=== PATIENT | male | born 1960 | race Caucasian/White ===

== ENCOUNTER 2020-11-20 13:06 | Emergency (ER) | payer MEDICAID, OTHER ==
--- NOTE | 2020-11-20 13:56 | EDM.PDOC ---
ED HPI GENERAL MEDICAL PROBLEM - General Chief Complaint: General Stated Complaint: POSSIBLE COVID Time Seen by Provider: 11/20/20 13:40 Source of Information: Reports: Patient, RN. Denies: Old Records History Limitations: Reports: Other (no old records) - History of Present Illness INITIAL COMMENTS - FREE TEXT/NARRATIVE: 60 yo male who has a cabin locally but who is otherwise from [facility] presents with 3 days of weakness, mild diarrhea, and some vague stomach pain. He has a dry cough without SOB. He got sick shortly after arriving and [place] Is here by himself. Still has his GB. Onset: Gradual Onset Date: 11/17/20 Duration: Day(s): (3+), Constant Location: Reports: Chest (cough), Abdomen (diffuse, mild pain) Quality: Reports: Dull Severity: Mild Improves with: Reports: None Worsens with: Reports: None Context: Reports: Other (See HPI) Associated Symptoms: Reports: Cough (dry), Other (diarrhea, mild). Denies: Chest Pain, Fever/Chills, Nausea/Vomiting, Shortness of Breath Treatments STONECUTTER HAND: Reports: Other (see below) (none) Bilateral Knee Pain Score (Numeric/FACES): 7 - Related Data Allergies Allergy/AdvReac Type Severity Reaction Status Date / Time No Known Allergies Allergy Verified 11/20/20 13:24 Home Meds: Home Meds Carbidopa/Levodopa [Sinemet 25-250 mg Tablet] 1 each PO QID 11/20/20 [History] Cetirizine [ZyrTEC] 10 mg PO DAILY 11/20/20 [History] Tolterodine Tartrate 1 mg PO BID PRN 11/20/20 [History] amLODIPine Besylate [Amlodipine Besylate] 5 mg PO DAILY 11/20/20 [History] lisinopriL [Lisinopril] 20 mg PO DAILY 11/20/20 [History] Past Medical History HEENT History: Reports: None Cardiovascular History: Reports: Hypertension Respiratory History: Reports: None Gastrointestinal History: Reports: None Genitourinary History: Reports: None Musculoskeletal History: Reports: Fracture Other Musculoskeletal History: right ankle Neurological History: Reports: Parkinson's Psychiatric History: Reports: None Endocrine/Metabolic History: Reports: None Hematologic History: Reports: None Immunologic History: Reports: None Oncologic (Cancer) History: Reports: None Dermatologic History: Reports: Urticaria Other Dermatologic History: rash on back - Infectious Disease History Infectious Disease History: Reports: Chicken Pox - Past Surgical History Other HEENT Surgeries/Procedures: eye lid lift GI Surgical History: Reports: None Musculoskeletal Surgical History: Reports: Knee Replacement Other Musculoskeletal Surgeries/Procedures:: right Social & Family History - Caffeine Use Caffeine Use: Reports: None - Recreational Drug Use Recreational Drug Use: No ED ROS GENERAL - Review of Systems Review Of Systems: See Below Constitutional: Reports: Malaise, Weakness (generalized). Denies: Fever, Chills, Diaphoresis HEENT: Reports: No Symptoms Respiratory: Reports: No Symptoms Cardiovascular: Reports: No Symptoms Endocrine: Reports: No Symptoms GI/Abdominal: Reports: Abdominal Pain (mild, diffuse), Diarrhea (mild, no blood). Denies: Black Stool, Bloody Stool, Constipation, Distension, Hematemesis, Hematochezia, Melena, Nausea, Vomiting : Reports: No Symptoms Musculoskeletal: Reports: No Symptoms Skin: Reports: No Symptoms Neurological: Reports: No Symptoms Psychiatric: Reports: No Symptoms ED EXAM, GENERAL - Physical Exam Exam: See Below Exam Limited By: No Limitations General Appearance: Alert, WD/WN, No Apparent Distress Eye Exam: Bilateral Eye: Normal Inspection Ears: Normal External Exam, Normal Canal, Hearing Grossly Normal, Normal TMs Ear Exam: Bilateral Ear: Auricle Normal, Canal Normal, TM normal Nose: Normal Inspection, No Blood Throat/Mouth: Normal Inspection, Normal Lips, Normal Oropharynx, Normal Voice, No Airway Compromise Head: Atraumatic, Normocephalic Neck: Normal Inspection Respiratory/Chest: No Respiratory Distress, Lungs Clear, Normal Breath Sounds, No Accessory Muscle Use Cardiovascular: Regular Rate, Rhythm, No Edema GI/Abdominal: Normal Bowel Sounds, Soft, No Distention, Tender (mild, RUQ) Back Exam: Normal Inspection. No: CVA Tenderness (R), CVA Tenderness (L) Extremities: Normal Inspection, Normal Range of Motion, Non-Tender, No Pedal Edema. No: Pedal Edema Neurological: Alert, Oriented, CN II-XII Intact, Normal Cognition, No Motor/Sensory Deficits, Other (resting tremor consistent with Parkinson's Dz) Psychiatric: Normal Mood, Flat Affect Skin Exam: Warm, Dry, Intact, Normal Color, No Rash Course - Vital Signs Last Recorded V/S: Last Vital Signs Temp 36.4 C 11/20/20 13:21 Pulse 106 H 11/20/20 13:34 Resp 18 11/20/20 13:21 BP 130/83 11/20/20 13:34 Pulse Ox 95 11/20/20 13:34 - Orders/Labs/Meds Orders: Active Orders 24 hr Category Date Time Status CORONAVIRUS COVID-19, LETTY Routine Lab 11/20/20 13:51 Received INPATIENT Routine Lab 11/20/20 13:51 Received Labs: Laboratory Tests 11/20/20 11/20/20 11/20/20 Range/Units 14:03 14:06 14:06 WBC 7.8 (4.5-11.0) K/uL RBC 5.23 (4.30-5.90) M/uL Hgb 16.2 H (12.0-15.0) g/dL Hct 46.2 (40.0-54.0) % MCV 88 (80-98) fL MCH 31 (27-31) pg MCHC 35 (32-36) % Plt Count 159 (150-400) K/uL Sodium 141 (140-148) mmol/L Potassium 3.1 L (3.6-5.2) mmol/L Chloride 98 L (100-108) mmol/L Carbon Dioxide 25 (21-32) mmol/L Anion Gap 21.1 H (5.0-14.0) mmol/L BUN 24 H (7-18) mg/dL Creatinine 1.3 (0.8-1.3) mg/dL Est Cr Clr Drug Dosing 62.75 mL/min Estimated GFR (MDRD) 56 L (>60) Glucose 98 (74-106) mg/dL Calcium 9.2 (8.5-10.1) mg/dL Magnesium 2.0 (1.8-2.4) mg/dL Total Bilirubin 2.3 H (0.2-1.0) mg/dL AST 44 H (15-37) U/L ALT 63 (12-78) U/L Alkaline Phosphatase 111 (46-116) U/L C-Reactive Protein 5.36 H (0.0-0.3) mg/dL Total Protein 6.9 (6.4-8.2) g/dL Albumin 3.3 L (3.4-5.0) g/dL Globulin 3.6 H (2.3-3.5) g/dL Albumin/Globulin Ratio 0.9 L (1.2-2.2) Meds: Medications Discontinued Medications Generic Name Dose Route Start Last Admin Trade Name Bella PRN Reason Stop Dose Admin Potassium Chloride 40 meq 11/20/20 14:34 Potassium Chloride 20 Meq Tab.Er PO 11/20/20 14:35 ONETIME ONE Departure - Departure Time of Disposition: 14:50 Disposition: Home, Self-Care 01 Condition: Fair Clinical Impression: Viral illness, Mild dehydration, Hypokalemia - Discharge Information *PRESCRIPTION DRUG MONITORING PROGRAM REVIEWED*: Not Applicable *COPY OF PRESCRIPTION DRUG MONITORING REPORT IN PATIENT SABINE: Not Applicable Instructions: Viral Illness, Adult, Hypokalemia Referrals: PCP,None [Primary Care Provider] - Forms: ED Department Discharge Additional Instructions: Drink enough fluids so that your urine is light yellow in color. Take Peptobismol per package instructions as needed for loose stools. Take acetaminophen up to 1000 mg every 6 hrs as needed for pain or fever control. Your Covid test will be back early next week, we will reach out to then with your results. Isolate yourself to prevent spread of your illness. Robitussin DM for cough per package label. If not already doing so, make sure you are getting Zinc 50 mg daily and Vitamin D 4000 IU daily. Return or be seen in a clinic if a lot worse. Include more high potassium foods in your diet such as bananas and yogurt. Sepsis Event Note (ED) - Evaluation Sepsis Screening Result: No Definite Risk - Focused Exam Vital Signs: Vital Signs Temp Pulse Resp BP Pulse Ox 11/20/20 13:34 106 H 130/83 95 11/20/20 13:21 36.4 C 104 H 18 130/83 97 - My Orders Last 24 Hours: My Active Orders 11/20/20 13:51 CORONAVIRUS COVID-19, LETTY Routine INPATIENT Routine - Assessment/Plan Last 24 Hours: My Active Orders 11/20/20 13:51 CORONAVIRUS COVID-19, LETTY Routine INPATIENT Routine
[2020-11-20] MEDS ORDERED: Potassium Chloride 20 MEQ Tab.ER PO ONE (14:34)
== END 2020-11-20 15:09 | disposition home or self-care (01) ==
LOC: JP.ED 13:06
DX: E87.6 Hypokalemia (principal); B34.9 Viral infection, unspecified; E86.0 Dehydration; U07.1 COVID-19; I10 Essential (primary) hypertension; G20 Parkinson's disease; Z79.899 Other long term (current) drug therapy
CPT/HCPCS: 36415; 80053; 83735; 85027; 86140; 87635; 99284; A9270; U0002